=== PATIENT | female | born 1975 | race Caucasian/White ===

== ENCOUNTER 2023-06-26 09:19 | Emergency (ER) | payer OTHER, SELFPAY ==
--- NOTE | ~2023-06-26 | US_ITS ---
EXAMINATION: US pelvic complete DATE: 06/26/2023 12:21 INDICATION: Left adnexal pain TECHNIQUE: Multiple transabdominal sonographic images of the pelvis were obtained. COMPARISON: None. FINDINGS: The uterus measures 9.4 x 5.4 x 5.3 cm. The endometrial complex measures 7 mm. The right ov lai measures 3.9 x 2.7 x 2.2 cm. The left ovary measures 7.2 x 4.3 x 4.7 cm and contains a 4.6 cm sim ple cyst. There is normal vascular flow in the ovaries. There is no free fluid in the pelvis. IMPRESSION: 1. No sonographic correlate for the patient's symptoms. Reviewed, dictated and finalized at location B. [employer]
[2023-06-26 09:30] VITALS: BP 107/58; PULSE 70; RESP 18; TEMP 36.3; O2SAT 100
[2023-06-26 11:09] VITALS: BP 117/72; PULSE 66; RESP 17; O2SAT 100
[2023-06-26 11:11] LABS: Glucose Point of Care 88 mg/dl (65-105)
[2023-06-26] MEDS: SODIUM CHLORIDE 0.9% IV 1,000 ML 999 ML IV CONT (11:53)
[2023-06-26 12:04] LABS: Basophils Percent Auto 0.4 % (0.2-1.2); Eosinophils Percent Auto 0.7 % (0-4.4); Hematocrit 39.6 % (37.0-47.0); Hemoglobin 13.2 g/dL (12.0-15.0); Immature Granulocyte Absolute 0.02 K/mm3 (0.00-0.031); Immature Granulocyte Percent A 0.4 % (0-0.5); Lymphocytes Absolute Auto 1.03 K/mm3 (0.9-3.2); Lymphocytes Percent Auto 18.7 % (18.3-44.2); Mean Corpuscular HGB Conc 33.3 g/dl (32-36); Mean Corpuscular Hemoglobin 28.9 pg (26-34); Mean Corpuscular Volume 86.8 fl (80-100); Mean Platelet Volume 9.9 fl (7.4-10.4); Monocytes Absolute Auto 0.4 K/mm3 (0.1-0.6); Monocytes Percent Auto 6.7 % (2.6-8.5); Neutrophils Percent Auto 73.1 % (45.5-73.1); Platelet Count Result 141 k/mm3 (150-375); Red Blood Count 4.56 M/mm3 (4.2-5.4); Red Cell Distribution Width 13.1 % (11.5-14.5); White Blood Count 5.5 K/mm3 (4.5-10.0)
[2023-06-26 12:23] LABS: Alanine Aminotransferase 30 U/L (6-35); Albumin Level 3.8 g/dL (3.5-5.1); Alkaline Phosphatase 72 U/L (38-126); Anion Gap 3 mmol/L (8-16); Aspartate Amino Transferase 39 U/L (14-36); Bilirubin,Total 1.6 mg/dL (0.2-1.3); Blood Urea Nitrogen 10 mg/dL (7-17); Calcium 8.5 mg/dL (8.4-10.2); Carbon Dioxide 26 mmol/L (22-30); Chloride 108 mmol/L (98-107); Estimated CRCL calculation 79 ml/min; Estimated Glomerular Filt Rate > 60; Glucose 91 mg/dL (65-110); Potassium 3.6 mmol/L (3.4-5.0); Sodium 137 mmol/L (137-145)
[2023-06-26 12:48] LABS: Appearance Urine Clear (Clear); Bacteria Urine None Seen /hpf; Bilirubin Urine Negative (Negative); Blood Urine 3+ (Negative); Color Urine Yellow (Yellow); Glucose Urine UA Negative (Negative); Ketones Urine Negative (Negative); Leukocyte Esterase Ur Negative LEU/UL (Negative); Need Manual Microscopic Reviewed; Nitrate Urine Negative (Negative); Non Pathogenic Casts 0-2; Protein Urine Negative (Negative); Specific Grav Ur 1.003 (1.001-1.035); Squamous Epithelial Cell Urine None seen /hpf (Few); Urobilinogen Urine 0.2 mg/dL (<2.0); WBC Urine 0-5 /hpf; pH Urine 7.5 (5.0-9.0)
[2023-06-26 12:49] LABS: Add Urine Microscopic? YES
[2023-06-26 13:50] VITALS: BP 110/71; PULSE 73; RESP 17; O2SAT 100
--- NOTE | 2023-06-26 14:16 | ED.GENADULT ---
HPI - General Adult General Chief complaint: Vaginal Bleeding Stated complaint: abd pain Time Seen by Provider: 06/26/23 11:07 History of Present Illness HPI narrative: Patient is a 48-year-old female who presents ER with pelvic cramping. Reports that she is coming to the end of her menstrual cycle , she had the very intense cramp today. She then became short of breath and developed spasming of her hands. She reports she has bleeding listed in she had the previous days. No syncope. Feels better at this time. No urinary frequency urgency dysuria. No additional complaints. Related Data Home Medications Medication Instructions Recorded Confirmed cholecalciferol (vitamin D3) 50 50 mcg PO DAILY 12/19/22 12/19/22 mcg (2,000 unit) capsule magnesium 200 mg tablet 200 mg PO DAILY 12/19/22 12/19/22 vitamin B complex 1 cap PO DAILY 12/19/22 12/19/22 zinc acetate 25 mg (zinc) capsule 25 mg PO ONCE 12/19/22 12/19/22 Allergies Allergy/AdvReac Type Severity Reaction Status Date / Time Penicillins Allergy Mild Rash Verified 12/19/22 09:34 prednisone Allergy Mild Rash Verified 12/19/22 09:34 cephalexin Allergy Unknown RASH Verified 12/19/22 09:34 Cephalosporins Allergy Unknown Rash Verified 12/19/22 09:34 Review of Systems Constitutional: Constitutional: Reports no additional constitutional complaints ENT: Reports system reviewed and no additional complaints, except as documented Cardiovascular: Cardiovascular: Reports no additional cardiovascular complaints Respiratory: Respiratory: Reports no additional respiratory complaints Gastrointestinal: Gastrointestinal: Reports no additional gastrointestinal complaints Genitourinary: Genitourinary: Reports abnormal vaginal bleeding, Denies nocturia, Denies dysuria, Reports pelvic pain and Denies flank pain [facility] Surgical History Surgical History (Updated 12/19/22 @ 09:27 by Tash Saab MA) History of dilatation and curettage 1999, 2005, 2008 Family History Family History (Updated 12/19/22 @ 09:29 by Tash Saab MA) Father Cancer of unknown origin Grandparent Diabetes mellitus Other Unknown family medical history Social History Social History (Updated 12/19/22 @ 09:29 by Tash Saab MA) Smoking status: Never smoker Substance use: never Lack of Transportation: No Lack of Food: Never True Current Housing: I Have Housing Concerned About Future Housing: No Difficulty Paying Gas/Electric Bills: No Difficulty Paying for Meds: No Currently Unemployed: No Education: High School Diploma/GED Difficulty w/ Childcare or Family Care: No Living arrangements: with family Gender identity (if verbalized by the patient): Female Spiritual care concerns: No Agree to blood products: Yes Exam Narrative: GENERAL: Well-appearing, well-nourished, and in no acute distress. HEAD: Normocephalic, atraumatic. ENT: Mucous membranes moist. CHEST: Clear to auscultation. No respiratory distress. HEART: Regular rate and rhythm. Normal peripheral pulses. ABDOMEN: Soft, mild left lower pelvic pain, nondistended. EXTREMITIES: Normal range of motion. No edema. SKIN: Warm, dry, no rash. NEURO: Alert and oriented x3. PSYCH: Normal mood and affect. Course Course Emergency Course: patient resting comfortably. Informed of results. Pain controlled. Discharge home. Vital Signs Vital signs: Vital Signs Temperature 97.3 F L 06/26/23 09:30 Pulse Rate 70 06/26/23 09:30 Respiratory Rate 18 06/26/23 09:30 Blood Pressure 107/58 L 06/26/23 09:30 Pulse Oximetry 100 06/26/23 09:30 Oxygen Delivery Room Air 06/26/23 09:30 Temperature 97.3 F L 06/26/23 09:30 Pulse Rate 73 06/26/23 13:50 Respiratory Rate 17 06/26/23 13:50 Blood Pressure 110/71 06/26/23 13:50 Pulse Oximetry 100 06/26/23 13:50 Oxygen Delivery Room Air 06/26/23 09:30 Medical Decision Making Vital Signs Vital Signs:
== END 2023-06-26 14:25 | disposition home or self-care (01) ==
PROVIDERS: Emergency Provider Emergency Medicine; PCP Family Medicine
DX: R10.2 Pelvic and perineal pain (principal)
CPT/HCPCS: 36415; 76856; 80053; 81001; 82948; 85025; 96360; 99284; J7030